=== PATIENT | female | born 1995 | race Caucasian/White ===

== ENCOUNTER 2018-06-07 23:36 | Emergency (ER) | payer OTHER | END 2018-06-08 00:06 | disposition left against medical advice (07) | LOC: EMS 23:36 | DX: R11.0 Nausea (principal); Z53.21 Procedure and treatment not carried out due to patient leaving prior to being seen by health care provider ==

== ENCOUNTER 2019-08-17 04:07 | Emergency (ER) | payer OTHER ==
[~2019-08-17] VITALS: Ht 154.9 cm; Wt 64.5 kg
[2019-08-17 04:24] VITALS: BP 141/69
[2019-08-17] MEDS ORDERED: HYDR200T4 PO (06:03)
[2019-08-17] MEDS ORDERED: PRED10 PO (06:03)
[2019-08-17] MEDS ORDERED: IPRATROPIUM BROMIDE 0.5 MG/2.5 ML NEB SOLUTION NEB ONE (07:45)
[2019-08-17] MEDS ORDERED: IBUPROFEN 600 MG TABLET PO ONE (07:45)
[2019-08-17] MEDS ORDERED: AMOX TR/POT CLAV 875 MG/125 MG TABLET PO ONE (07:45)
[2019-08-17] MEDS ORDERED: PredniSONE 20 MG TABLET PO ONE (07:45)
[2019-08-17] MEDS ORDERED: ALBUTEROL SULFATE 2.5 MG/0.5 ML NEB SOLUTION NEB ONE (07:45)
== END 2019-08-17 08:34 | disposition home or self-care (01) ==
LOC: EMS 04:07
DX: R05 Cough (principal); H66.93 Otitis media, unspecified, bilateral; R07.9 Chest pain, unspecified; F17.200 Nicotine dependence, unspecified, uncomplicated; F12.90 Cannabis use, unspecified, uncomplicated; Z88.8 Allergy status to other drugs, medicaments and biological substances
CPT/HCPCS: 71046; 81025; 93005; 94640; 99284; J7512

== ENCOUNTER 2025-06-21 07:28 | Inpatient (IN) | payer MEDICARE, OTHER ==
[2025-06-21] VITALS (15 sets, daily range): BP systolic 188–215; BP diastolic 105–137; PULSE 92–114; RESP 18–20; TEMP 97.9–98.7; O2SAT 95–99
[~2025-06-21] VITALS: Ht 157.5 cm; Wt 58.5 kg
[~2025-06-21 07:28] MED LIST: HYDR200T38 PO; PRED-729 PO
[2025-06-21] MEDS ORDERED: SEVE800T39 PO (07:48)
[2025-06-21] MEDS ORDERED: PARI1CAP11 PO (07:48)
[2025-06-21] MEDS ORDERED: NIFE-40 PO (07:48)
[2025-06-21] MEDS ORDERED: PRAZ2 PO (07:48)
[2025-06-21] MEDS ORDERED: MIRT-149 PO (07:48)
[2025-06-21] MEDS ORDERED: HYDR50TA36 PO (07:48)
[2025-06-21] MEDS ORDERED: DIVA-111 PO (07:48)
[2025-06-21] MEDS ORDERED: CARV25 PO (07:48)
[2025-06-21] MEDS ORDERED: SCOP1PAT12 TP (07:48)
[2025-06-21] MEDS ORDERED: BUME1TAB50 PO (07:48)
[2025-06-21] MEDS ORDERED: APIX5TAB PO (07:48)
[2025-06-21] MEDS ORDERED: LEVO88TA4 PO (07:48)
[2025-06-21] MEDS ORDERED: SERT-158 PO (07:48)
[2025-06-21] MEDS ORDERED: FOLI0.8T54 PO (07:48)
[2025-06-21] MEDS ORDERED: HYDR200T38 PO (07:48)
[2025-06-21] MEDS ORDERED: OMEP-148 PO (07:48)
[2025-06-21 08:35] LABS: PLATELET COUNT (AUTO) 111 K/uL (150-450); RED BLOOD CELL COUNT(AUTO) 2.47 MIL/uL (4.00-5.20); RED CELL DISTRIBUTION WIDTH 15.1 % (11.5-14.5); WHITE BLOOD COUNT (AUTO) 7.3 K/uL (4.5-11.0)
[2025-06-21 08:38] LABS: CALCIUM, TOTAL 8.7 mg/dL (8.8-10.5); CREATININE 6.69 mg/dL (0.60-1.30); GLOMERULAR FILTR. RATE CALC 7.0 mL/min (>60); GLUCOSE,RANDOM 97.0 mg/dL (70-110); SODIUM SERUM 137.0 mmol/L (136-145); UREA NITROGEN, BLOOD 31.0 mg/dL (7-18)
[2025-06-21] MEDS: ONDANSETRON HCL 4 MG/2 ML VIAL IVP ONE ×2 (08:38→10:31)
[2025-06-21] MEDS: MORPHINE SULFATE 4 MG/ML SYRINGE IVP ONE (08:38)
[2025-06-21 08:53] LABS: ASPARTATE AMINOTRANSFERASE 21.0 U/L (15-37); HCG,QUANTITATIVE 1.0 mIU/mL (0-6); TOTAL PROTEIN, SERUM 6.5 g/dL (6.4-8.2)
[2025-06-21 09:04] LABS: APPEARANCE,URINE CLEAR (CLEAR); GLUCOSE, URINE (UA) NEGATIVE (NEGATIVE); LEUKOCYTE ESTERASE ,URINE NEGATIVE (NEGATIVE); NITRATE,URINE NEGATIVE (NEGATIVE); OCCULT BLOOD,URINE NEGATIVE (NEGATIVE); SPECIFIC GRAVITIY, URINE 1.014 (1.003-1.030)
[2025-06-21 09:11] LABS: SULFOSALICYLIC ACID,URINE 3+ (Negative)
[2025-06-21 09:13] LABS: YEAST,URINE Rare /HPF (None Seen)
[2025-06-21 09:14] LABS: SQUAMOUS EPITHELIAL CELL,UR Few /LPF (None Seen)
[2025-06-21] MEDS ORDERED: TRIMETHOBENZAMIDE HCL 200 MG/2 ML VIAL IM ONE (09:45)
[2025-06-21] MEDS ORDERED: ZOLPIDEM TARTRATE 5 MG TABLET PO PRN (12:45)
[2025-06-21] MEDS ORDERED: BISACODYL 10 MG RECTAL RECTAL SUPPOSITORY PR PRN (12:45)
[2025-06-21] MEDS ORDERED: HYDROCODONE/ACETAMINOPHEN 5-325 MG TABLET PO PRN (12:45)
[2025-06-21] MEDS ORDERED: MAGNESIUM HYDROXIDE SUSPENSION 30 ML UDCUP PO PRN (12:45)
[2025-06-21] MEDS: *CLINICAL-LEVOFLOXACIN IVPB DOSING CLINICAL ONE (12:51)
[2025-06-21] MEDS: EPOETIN ALFA 10,000 UNITS/ML VIAL SQ SCH (13:00)
[2025-06-21] MEDS: ONDANSETRON HCL 4 MG/2 ML VIAL IVP PRN (13:26)
[2025-06-21] MEDS: MORPHINE SULFATE 4 MG/ML SYRINGE IVP PRN (13:34)
[2025-06-21] MEDS: LEVOFLOXACIN 750 MG/D5% WATER 150 ML IV ONE (13:57)
[2025-06-21] MEDS ORDERED: SODIUM CHLORIDE 0.9% 1,000 ML ONE (15:02)
[2025-06-21] MEDS: SEVELAMER CARBONATE 800 MG TABLET PO SCH (18:00)
[2025-06-21] MEDS: PRAZOSIN HCL 2 MG CAPSULE PO SCH (20:27)
[2025-06-21] MEDS: APIXABAN 5 MG TABLET PO SCH (20:32)
[2025-06-21] MEDS: BUMETANIDE 1 MG TABLET PO SCH (20:32)
[2025-06-21] MEDS: MIRTAZAPINE 30 MG TABLET PO SCH (21:00)
[2025-06-21] MEDS: DIVALPROEX SODIUM 250 MG DR TABLET PO SCH (21:00)
[2025-06-21] MEDS: DOCUSATE SODIUM 100 MG CAPSULE PO SCH (21:00)
[2025-06-21] MEDS: ACETAMINOPHEN 325 MG TABLET PO PRN (23:03)
[2025-06-22 00:55] VITALS: BP 148/91
[2025-06-22] MEDS: LEVOTHYROXINE SODIUM 88 MCG TABLET PO SCH (06:18)
[2025-06-22 08:31] VITALS: BP 135/81; PULSE 79; RESP 17; TEMP 98.3; O2SAT 95
[2025-06-22] MEDS: PANTOPRAZOLE SODIUM 40 MG DR TABLET PO SCH (09:00)
[2025-06-22] MEDS: SERTRALINE HCL 50 MG TABLET PO SCH (09:00)
[2025-06-22] MEDS: FOLIC ACID/VIT B COMPLEX AND C TABLET PO SCH (09:50)
[2025-06-22] MEDS: HYDROXYCHLOROQUINE SULFATE 200 MG TABLET PO SCH (09:52)
[2025-06-22 15:45] LABS: PLATELET COUNT (AUTO) 101 K/uL (150-450); RED BLOOD CELL COUNT(AUTO) 2.85 MIL/uL (4.00-5.20); RED CELL DISTRIBUTION WIDTH 15.6 % (11.5-14.5); WHITE BLOOD COUNT (AUTO) 4.9 K/uL (4.5-11.0)
[2025-06-22 15:55] LABS: CALCIUM, TOTAL 8.7 mg/dL (8.8-10.5); CREATININE 4.89 mg/dL (0.60-1.30); GLOMERULAR FILTR. RATE CALC 10.0 mL/min (>60); GLUCOSE,RANDOM 106.0 mg/dL (70-110); SODIUM SERUM 137.0 mmol/L (136-145); UREA NITROGEN, BLOOD 20.0 mg/dL (7-18)
[2025-06-22 16:12] VITALS: BP 118/76; PULSE 68; RESP 18; TEMP 97.9; O2SAT 100
[2025-06-22 19:53] VITALS: BP 115/70; PULSE 70; RESP 17; TEMP 97.9; O2SAT 97
[2025-06-23] VITALS (13 sets, daily range): BP systolic 123–159; BP diastolic 70–97; PULSE 65–77; RESP 16–18; TEMP 97.7–98.6; O2SAT 95–98
[2025-06-23] MEDS ORDERED: SODIUM CHLORIDE 0.9% 2,000 ML ONE (10:46)
[2025-06-23 11:16] LABS: PLATELET COUNT (AUTO) 103 K/uL (150-450); RED BLOOD CELL COUNT(AUTO) 2.78 MIL/uL (4.00-5.20); RED CELL DISTRIBUTION WIDTH 15.6 % (11.5-14.5); WHITE BLOOD COUNT (AUTO) 1.5 K/uL (4.5-11.0)
[2025-06-23 11:24] LABS: CALCIUM, TOTAL 8.1 mg/dL (8.8-10.5); CREATININE 4.64 mg/dL (0.60-1.30); GLOMERULAR FILTR. RATE CALC 11.0 mL/min (>60); GLUCOSE,RANDOM 88.0 mg/dL (70-110); SODIUM SERUM 137.0 mmol/L (136-145); UREA NITROGEN, BLOOD 19.0 mg/dL (7-18)
[2025-06-23] MEDS ORDERED: HYDR2TAB37 PO (11:27)
[2025-06-23] MEDS ORDERED: PARI1CAP11 PO (11:27)
[2025-06-23] MEDS ORDERED: LEVOFLOXACIN 500 MG/D5% WATER 100 ML IV SCH (13:00)
== END 2025-06-23 15:30 | disposition home or self-care (01) | DRG 304 ==
LOC: EMS 07:28 → EDH 11:05 → 5S 11:58
PROVIDERS: ADMIT Internal Medicine; ATTEND Internal Medicine
PROC: 5A1D70Z Performance of Urinary Filtration, Intermittent, Less than 6 Hours Per Day (ICD-10-PCS; principal; 2025-06-21)
PROC: 30233N1 Transfusion of Nonautologous Red Blood Cells into Peripheral Vein, Percutaneous Approach (ICD-10-PCS; 2025-06-21)
PROC: 5A1D70Z Performance of Urinary Filtration, Intermittent, Less than 6 Hours Per Day (ICD-10-PCS; 2025-06-23)
DX: I16.0 Hypertensive urgency (principal); N18.6 End stage renal disease; R64 Cachexia; E46 Unspecified protein-calorie malnutrition; E83.39 Other disorders of phosphorus metabolism; D63.1 Anemia in chronic kidney disease; E83.51 Hypocalcemia; I13.11 Hypertensive heart and chronic kidney disease without heart failure, with stage 5 chronic kidney disease, or end stage renal disease; Z99.2 Dependence on renal dialysis; Z79.01 Long term (current) use of anticoagulants; F11.20 Opioid dependence, uncomplicated; E11.22 Type 2 diabetes mellitus with diabetic chronic kidney disease; E03.9 Hypothyroidism, unspecified; F10.10 Alcohol abuse, uncomplicated; F32.A Depression, unspecified; N25.81 Secondary hyperparathyroidism of renal origin; E88.09 Other disorders of plasma-protein metabolism, not elsewhere classified; R62.7 Adult failure to thrive; E78.5 Hyperlipidemia, unspecified; Y90.8 Blood alcohol level of 240 mg/100 ml or more; G89.29 Other chronic pain; Z82.49 Family history of ischemic heart disease and other diseases of the circulatory system; Z86.718 Personal history of other venous thrombosis and embolism; Z87.59 Personal history of other complications of pregnancy, childbirth and the puerperium; Z90.721 Acquired absence of ovaries, unilateral; Z91.199 Patient's noncompliance with other medical treatment and regimen due to unspecified reason; Z79.899 Other long term (current) drug therapy; Z68.23 Body mass index [BMI] 23.0-23.9, adult
CPT/HCPCS: 71045; 74176; 80048; 80076; 81001; 81002; 83690; 84702; 85025; 86850; 86900; 86901; 86923; 87040; 87081; 87340; 90935; 93005; 96365; 96372; 96375; 96376; 99285; J0360; J0885; J1200; J1956; J2270; J2405; J3250; J7030; P9016; 36415-L1; 36415-TC

== ENCOUNTER 2025-07-17 01:35 | Emergency (ER) | payer MEDICARE, OTHER ==
[~2025-07-17] VITALS: Ht 157.5 cm; Wt 60.0 kg
[~2025-07-17 01:35] MED LIST changes: +APIX5TAB PO; +BUME1TAB50 PO; +CARV25 PO; +DIVA-111 PO; +FOLI0.8T54 PO; +HYDR50TA36 PO; +LEVO88TA4 PO; +MIRT-149 PO; +NIFE-40 PO; +OMEP-148 PO; +PARI1CAP11 PO; +PRAZ2 PO; -PRED-729 PO; +SERT-158 PO; +SEVE800T24 PO
[2025-07-17 01:52] VITALS: BP 190/106; PULSE 91; RESP 16; TEMP 98.8; O2SAT 100
[2025-07-17 02:21] LABS: PLATELET COUNT (AUTO) 118 K/uL (150-450); RED BLOOD CELL COUNT(AUTO) 2.60 MIL/uL (4.00-5.20); RED CELL DISTRIBUTION WIDTH 15.9 % (11.5-14.5); WHITE BLOOD COUNT (AUTO) 6.2 K/uL (4.5-11.0)
[2025-07-17 02:30] LABS: CALCIUM, TOTAL 8.7 mg/dL (8.8-10.5); CREATININE 6.47 mg/dL (0.60-1.30); GLOMERULAR FILTR. RATE CALC 7.0 mL/min (>60); GLUCOSE,RANDOM 88.0 mg/dL (70-110); SODIUM SERUM 135.0 mmol/L (136-145); UREA NITROGEN, BLOOD 24.0 mg/dL (7-18)
[2025-07-17 02:43] LABS: HCG,QUANTITATIVE 1 mIU/mL (0-6)
== END 2025-07-17 05:58 | disposition left against medical advice (07) ==
LOC: EMS 01:35
DX: R10.9 Unspecified abdominal pain (principal); N89.8 Other specified noninflammatory disorders of vagina; Z53.21 Procedure and treatment not carried out due to patient leaving prior to being seen by health care provider
CPT/HCPCS: 80048; 83690; 84702; 85025; 99281